=== PATIENT | male | born 1990 | race Two or more races ===

== ENCOUNTER 2020-06-09 13:00 | Outpatient (CLI) | payer OTHER ==
[2020-06-09 13:42] VITALS: BP 123/79
--- NOTE | 2020-06-09 13:42 | SLEEP CARE CONSULTATION ---
Information from patient questionnaire entered by Sydni Avery. I have reviewed and concur with the information entered by Sydni Avery. This document represents the service I personally performed and the decisions made by me, Soco Cadena MD, [facility]. History of Present Illness Service Date and Time: 06/09/2020 1300 Reason for Visit: New patient Chief Complaint: reports: Insomnia, Unrefreshed sleep, Snoring, Fatigue, Frequent awakenings at night Date of Onset: 3 years Usual bedtime: rotating Time it takes to fall asleep: 30-60 minutes Snores at night: Yes Observed to quit breathing while asleep: Yes Sleeps alone due to snoring: No Number of times waking at night: 5-6 Reasons for waking at night: reports: Snoring, Gasping for air, Bathroom, Other (unknown reasons) Toss, Turn, or Twitch while sleeping: Yes Recalls having dreams: Yes Usually gets out of bed at: varies Feels refreshed in the morning: No Morning headache: Yes (resolves about 45 minutes after wake up) Sleepy or fatigued during the day: Yes Ever fallen asleep while driving: No Takes day naps: No Dreams during day naps: Yes Prior sleep studies: No Additional HPI information: I had the pleasure of seeing Mr. Beckham today regarding the possibility of him having a sleep disorder. As you know, he is a 30 year old gentleman who complains of loud snore and witnessed apnea. He reports that he while he was stationed in [employer], his roommate told him that he snored loudly and quit breathing at night. He wakes up frequently at night and feels sleepy during the day. He reports having suffocating dreams and waking up from his own snore. Bother his parents snore loudly. His weight has been stable. - Parasomnia Symptoms Ever been unable to move upon waking from sleep: No Walks in sleep: No Talks in sleep: No Ever acted out dreams in sleep: Yes Ever felt weak in the knees when startled or emotional: No Bothered by creepy, crawly, restless sensations in legs: No Problems with memory or concentration: No Subjective Initial [place] Sleepiness Scale score: 13 (in 2020) Past Medical History Past Medical History: reports: Anxiety Social History The patient's occupation is a Active . Patient is and lives in [place]. Have you smoked in the past 12 months: No Alcohol use: Yes Alcohol amount and frequency: 2-3 drinks weekly Caffeine use: No Family History Family history of sleep disordered breathing: No Family Hx Sleep Apnea: Mother: Snoring, Father: Snoring Allergies and Home Medications Drug allergies reviewed: Yes Home medication list reviewed: Yes (none) Review of Systems Weight gain over past 5 years: 10 Cardiovascular: denies: high blood pressure, palpitations, chest pain, irregular heart rate or pulse, leg or foot swelling, have to sleep sitting up, other Respiratory: denies: shortness of breath, wheeze, sputum production, chronic cough, other Gastrointestinal: reports: heartburn Urinary: denies: incontinence, frequency, urgency, impotence, other Neurological: reports: headaches Psychiatric: reports: anxiety, depression Ear/Nose/Throat: reports: wisdom teeth removed Endocrine: denies: thyroid disease, history of goiter, sluggishness, too hot or cold, excessive thirst, increased appetite, increased urination, unexplained weakness, other Musculoskeletal: reports: neck pain Immunologic: denies: sneezing, rash, itching, allergies to food or environment, other Physical Exam Vital signs obtained and entered by: Dr. Cadena Blood Pressure: 123/79 Cuff size: regular Heart Rate: 67 O2 Saturation: 98 Height: 5 ft 11 in Weight: 205 lb Body Mass Index: 28.5 BMI Classification: Overweight Neck circumference: 15.5 Mood/affect: normal HEENT: No craniofacial malformation Nostrils: patent to airflow Turbinates: normal Septum: midline Mouth and throat: narrow oropharynx Soft palate: long Hard palate: normal Uvula: normal Uvula visualization: 50% Mallampati Class II Tongue: normal in size Tonsils: small Chin and jaw: normal size and position Impression and Plan IMPRESSION: 1. Obstructive Sleep Apnea-Hypopnea Syndrome, as suggested by history of loud and irregular snoring, observed cessation of breath while asleep, frequent awakenings during the night, nocturnal choking, unrefreshed sleep, and daytime hypersomnolence. Narrow oropharynx is a common predisposing factor for obstructive sleep apnea-hypopnea syndrome. I recommend proceeding to polysomnography to confirm the diagnosis and to assess severity. He would like to first have a home sleep apnea test (HSAT). Plan: 1. Schedule a home sleep apnea test (HSAT) 2. Avoid long distance driving or when feeling sleepy. 3. Avoid alcohol, sedative and muscle relaxant around bedtime. 4. Return for follow up after the test. Visit Type: In Office Time Spent with Patient (minutes): 15 Provider Statement: I spent 100% of the Face to Face Visit with the patient with greater than 50% spent counseling the patient and coordination of care.
== END 2020-06-09 13:01 | disposition home or self-care (01) ==
LOC: SC 13:00
PROVIDERS: ATTEND Internal Medicine Pulmonary Disease
DX: G47.10 Hypersomnia, unspecified (principal); R06.81 Apnea, not elsewhere classified; G47.8 Other sleep disorders; R06.83 Snoring; E66.3 Overweight; Z68.28 Body mass index [BMI] 28.0-28.9, adult
CPT/HCPCS: 99202; 99212

== ENCOUNTER 2020-06-12 09:01 | Outpatient (CLI) | payer OTHER | END 2020-06-12 09:02 | disposition home or self-care (01) | LOC: SC 09:01 | PROVIDERS: ATTEND Internal Medicine Pulmonary Disease | DX: G47.10 Hypersomnia, unspecified (principal); G47.8 Other sleep disorders; R06.83 Snoring; R06.81 Apnea, not elsewhere classified; E66.3 Overweight; Z68.28 Body mass index [BMI] 28.0-28.9, adult | CPT/HCPCS: 95806 ==

== ENCOUNTER 2020-06-23 12:49 | Outpatient (CLI) | payer OTHER ==
--- NOTE | 2020-06-23 13:11 | SLEEP CARE CONSULTATION ---
Information from patient questionnaire entered by Josefa Triana. I have reviewed and concur with the information entered by Josefa Triana. This document represents the service I personally performed and the decisions made by me, Soco Cadena MD, [facility]. History of Present Illness Service Date and Time: 06/23/2020 1249 Initial [place] Sleepiness Scale score: 13 (in 2020) Current [place] Sleepiness Scale score: 15 Additional HPI information: HPI: Mr. Beckham returned for follow up of the home sleep apnea test (HSAT) he had on 06/13/2020. The test showed no significant sleep disordered breathing. The patient was informed of these findings. I explained to him that the test was normal. The patient, however, states that he did not sleep much that night. In addition there was some data loss at the beginning of the night. Sleep Study - Results Type of Sleep Study: Home sleep study Prior sleep studies: No Allergies and Home Medications Drug allergies reviewed: Yes Home medication list reviewed: Yes Review of Systems Review of systems same as previous: Yes Physical Exam Height: 5 ft 11 in Weight: 205 lb Body Mass Index: 28.5 BMI Classification: Overweight Impression and Plan IMPRESSION: 1. Suspected sleep apnea based on history of loud snore, observed apneas, and excessive daytime sleepiness. It is not uncommon for home sleep apnea tests to be falsely negative due to inadequate sleep (HSAT does not displ ay EEG and, therefore, cannot reliably differentiate wake from sleep). PLAN: 1. Repeat home sleep apnea test (HSAT). 2. Return for a follow up again after the test. Visit Type: In Office Time Spent with Patient (minutes): 12 Provider Statement: I spent 100% of the Face to Face Visit with the patient with greater than 50% spent counseling the patient and coordination of care.
== END 2020-06-23 12:50 | disposition home or self-care (01) ==
LOC: SC 12:49
PROVIDERS: ATTEND Internal Medicine Pulmonary Disease
DX: G47.10 Hypersomnia, unspecified (principal); R06.83 Snoring; R06.81 Apnea, not elsewhere classified; E66.3 Overweight; Z68.28 Body mass index [BMI] 28.0-28.9, adult
CPT/HCPCS: 99212

== ENCOUNTER 2020-06-30 13:22 | Outpatient (CLI) | payer OTHER | END 2020-06-30 13:23 | disposition home or self-care (01) | LOC: SC 13:22 | PROVIDERS: ATTEND Internal Medicine Pulmonary Disease | DX: G47.33 Obstructive sleep apnea (adult) (pediatric) (principal); R09.02 Hypoxemia; E66.3 Overweight; Z68.28 Body mass index [BMI] 28.0-28.9, adult | CPT/HCPCS: 95806 ==

== ENCOUNTER 2020-07-18 13:06 | Outpatient (CLI) | payer OTHER ==
--- NOTE | 2020-07-18 13:28 | SLEEP CARE CONSULTATION ---
Information from patient questionnaire entered by Sydni Avery. I have reviewed and concur with the information entered by Sydni Avery. This document represents the service I personally performed and the decisions made by , Mirta Brown ARNP. History of Present Illness Service Date and Time: 07/18/2020 1306 Initial [place] Sleepiness Scale score: 13 (in 2020) Current [place] Sleepiness Scale score: 14 Additional HPI information: POONAM PROCTOR returns for follow up and results of the recently performed home sleep study. I explained the pathophysiology behind obstructive sleep apnea. We then spent quite a bit of time discussing different treatment options. For mild obstructive sleep apnea, surgery and oral appliance are alternatives to nasal CPAP therapy but in moderate or severe cases, nasal CPAP is the most effective and reliable treatment. Because apnea is primarily in supine position, then positional management therapy could be effective. Methods discussed such as positioning with pillows, using a T-shirt with tennis balls in the back, and shown commercial products that have a pillow format on back to prevent supine sleep. I reviewed the impact of weight changes on sleep apnea and strongly recommended losing weight. After some discussion, the patient opted to go with the nasal CPAP therapy. Nasal autoCPAP set at 4-15 cmH20 will be ordered with rationale explained. A manual titration study will be ordered if unable to find optimal pressure with office adjustments. I explained how CPAP machine works with sample devices [employer] Dreamstation and [employer] [id number] and what to expect when using the machine. Using CPAP every night in order to get used to it was emphasized. Patient advised to put CPAP mask on before getting into bed so as not to fall asleep without CPAP. To assist acclimation to CPAP use, it could also be used for a short time during day while reading or watching TV. The patient was instructed to call the CPAP supplier to discuss any mechanical problem that may occur. If the mask given is uncomfortable or is difficult to keep on through the night even with adjustment, contact the CPAP supplier as many will replace with another mask style if notified before 30 days. If snoring or perceives is not getting enough air or too much air from the machine, notify this office. [facility] patient education PAP tips reviewed and given to patient. Patient counseled not drink alcohol less than 4 hours before bedtime as it can increase snoring and apnea. Patient was cautioned about risks of drowsy driving until sleepiness symptoms resolve. Sleep Study - Results Type of Sleep Study: Home sleep study Prior sleep studies: Yes (Home Study) Year and Where: 2019 - [facility] Polysomnography/Home Sleep Study results: Physician Impression: The quality of the study is fair due to partial loss of airflow signal.. The length of the study is adequate (> 240 minutes). Please also see the tabulated and graphic data. 1. Obstructive Sleep Apnea-Hypopnea (ICD-10 G47.33), mild, with an AHI of 10.3 /hr and dorothy SaO2 of 88%. During the study, the patient had 41 apneas (41 obstructive, 0 central, 0 mixed) and 18 hypopneas. The longest episode lasted 114.5 seconds. The respiratory events occurred more frequently during supine sleep (supine AHI was 14.3 and non-supine, 5.67). 2. Hypoxemia (ICD-10 R09.02), minimal, with the lowest oxygen saturation of 88 % and 0.5 minutes with SaO2 under 90%. Baseline oxygen saturation was normal (Average oxygen saturation was 95%). Allergies and Home Medications Drug allergies reviewed: Yes (NKDA) Home medication list reviewed: Yes (no new meds) Review of Systems Review of systems same as previous: Yes (no changes) Physical Exam Heart Rate: 60 O2 Saturation: 98 Height: 5 ft 11 in Weight: 216 lb Body Mass Index: 30.1 BMI Classification: Obese Impression and Plan 1. Obstructive Sleep Apnea-Hypopnea Syndrome, mild, with lowest oxygen saturation of 88%. Obviously this is the cause of the patients symptoms of unrefreshed sleep, and excessive daytime sleepiness. Positive pressure therapy could benefit anxiety. As mentioned above, the patient will be started on nasal autoCPAP therapy with pressure set at 4-15 cmH2O. A manual titration study will be completed if unable to find optimal treatment pressure with office adjustments. Compliance guidelines also reviewed. A copy of compliance guidelines will be given for reference at check out. Because the apnea is more severe supine, I instructed to avoid sleeping supine using pillow positioning until able to start CPAP use. * Nasal auto CPAP therapy, pressure at 4-15 cm H2O. * Attempt to lose weight. * Avoid alcohol consumption near bedtime. * Avoid supine sleep until using CPAP. * The patient is again cautioned about driving until sleepiness completely resolves. * Return one month after CPAP obtained. I will assess response to therapy and compliance at that time. Counseling Topics: Weight loss health impact Visit Type: In Office Time Spent with Patient (minutes): 21 Provider Statement: I spent 100% of the Face to Face Visit with the patient with greater than 50% spent counseling the patient and coordination of care.
== END 2020-07-18 13:07 | disposition home or self-care (01) ==
LOC: SC 13:06
PROVIDERS: ATTEND Nurse Practitioner Family
DX: G47.33 Obstructive sleep apnea (adult) (pediatric) (principal); R09.02 Hypoxemia; E66.9 Obesity, unspecified; Z68.30 Body mass index [BMI] 30.0-30.9, adult
CPT/HCPCS: 99212; 99213

== ENCOUNTER 2020-09-08 09:20 | Outpatient (CLI) | payer OTHER ==
--- NOTE | 2020-09-08 10:20 | SLEEP CARE CONSULTATION ---
Information from patient questionnaire entered by Josefa Triana. I have reviewed and concur with the information entered by Josefa Triana. This document represents the service I personally performed and the decisions made by me, Soco Cadena MD, [facility]. History of Present Illness Service Date and Time: 09/08/2020919 Previous diagnosis: Mild, Obstructive Sleep Apnea-Hypopnea Syndrome AHI: 10.3 Reason for follow up: first compliance (Set up 07/31/20) Equipment obtained from: Other ([employer]) Mask style: Nasal pillows Prior sleep studies: Yes (Home Study) Year and Where: 2020 - [facility] Type of Sleep Study: Home sleep study HPI additional information: HPI: Mr. Bain was diagnosed to have mild obstructive sleep apnea-hypopnea syndrome and returns today for follow up of CPAP therapy. The patient purchased the device from [employer] and was fitted with nasal pillows. He uses the device almost nightly and all through the night. The compliance report shows that he uses the device 23 nights out of the past 30 nights, averaging 4.7 hours a night. He complains of no particular problem with the device such as soreness on the face, dry nose, epistaxis, nasal congestion or headache. He thinks that the pressure of 4 - 15 cmH2O is comfortable. On the CPAP therapy he notices improvement in his sleep quality, and that he wakes up feeling fresher in the morning and more awake/alert during the day. [place] Sleepiness Scale score is 16. The average residual AHI is 5.5 ; and average time in large leak per day is 3 minutes a night. The 90th percentile pressure is 8.5 cmH2O. Sleep Study - Results Type of Sleep Study: Home sleep study Prior sleep studies: Yes (Home Study) Year and Where: 2019 - [facility] CPAP Compliance Data - Data Reviewed with Patient Average duration of nightly device use: 4 h 44 min Compliance rate %: 66.7 Current pressure setting (cmH2O): 15/4 Average residual AHI: 5.5 Average large leak: 3 min 52 sec Subjective Missed days of use due to: reports: illness (Congested), travel, other (Camping) Patient concerns: reports: air blowing in eyes, mask leak noise, nasal congestion Current pressure setting perceived as: too high Initial [place] Sleepiness Scale score: 13 (in 2020) Current [place] Sleepiness Scale score: 16 Allergies and Home Medications Drug allergies reviewed: Yes Home medication list reviewed: Yes Review of Systems Review of systems same as previous: Yes Physical Exam Height: 5 ft 11 in Weight: 215 lb Body Mass Index: 29.9 BMI Classification: Overweight Impression and Plan IMPRESSION: 1. Obstructive Sleep Apnea-Hypopnea Syndrome, mild, with the patient is doing fairly well on nasal CPAP therapy. He has decent compliance and significant clinical benefits. The few nights he did not use it were because he went camping. The current pressure appears comfortable but not quite effective. Overall, he is very satisfied with treatment and plans to continue with it long-term. I will raise the staring pressure a little. PLAN: 1. autoCPAP set to 6 - 12 set cm H2O. 2. Take the device [place]. The CPAP is a medically necessary device. 3. Increase the heated humidifier for nasal congestion. 4. Return in one year for follow up or earlier if there is any problem with the treatment. Visit Type: In Office Time Spent with Patient (minutes): 15 Provider Statement: I spent 100% of the Face to Face Visit with the patient with greater than 50% spent counseling the patient and coordination of care.
== END 2020-09-08 09:21 | disposition home or self-care (01) ==
LOC: SC 09:20
PROVIDERS: ATTEND Internal Medicine Pulmonary Disease
DX: G47.33 Obstructive sleep apnea (adult) (pediatric) (principal)
CPT/HCPCS: 99212